=== PATIENT | male | born 1965 | race African-American/Black ===

== ENCOUNTER → 2018-03-30 | Outpatient (RCR) | payer MEDICARE, OTHER ==
[~2018-03-30] MED LIST: AMLODIPINE BESY10 MG ORAL; ANTI-DIARRHEA2 MG PO; FERROUS SULFAT325 M2 ORAL; FUROSEMIDE40 MG ORAL; FUROSEMIDE40 MG/5 ML ORAL; HUMALOG100 UNIT/4 SUBQ; LANTUS SOL100 UNIT/1 SUBQ; NORCO 5-325 TA1 EAC1 ORAL; NOVOLIN R100 UNIT/1 SUBQ; RENAGEL800 MG ORAL; SODIUM POL15 GM/60 M PO; THERAPEUTIC M PO; UNOBMED; [UNRECOGNIZED DRUG - OTHER]; [UNRECOGNIZED DRUG - OTHER]
--- NOTE | 2018-03-30 17:19 | Diagnostic Imaging Report ---
Reason For Exam: COUGH Technique: XRAY Chest 2v Comparison: 01/03/2016 Findings: There is unchanged elevation of the right hemidiaphragm. There has been interval removal of the dialysis catheter. Metallic foreign bodies again project over the right upper thorax. There is no definite focal airspace consolidation, pleural effusion or pneumothorax. No acute osseous abnormality is seen. Impression: No focal consolidation, pleural effusion or pneumothorax. Chronic findings as above.
--- NOTE | 2018-03-31 10:43 | Diagnostic Imaging Report ---
Indication: pain Right hand pain Findings: 3 views of the right hand were obtained. The bones are severely osteopenic with patchy areas of demineralization. The third PIP joint appears destroyed. The normal joint architecture is absent and there is marked erosion of the joint space. Consequently there is a dislocation present. Findings may be on the basis of an advanced septic arthritis or inflammatory arthritis. Correlate clinically. Soft tissue swelling is noted. Small vessel arterial calcifications are present likely related to advanced renal disease. IMPRESSION: Destruction of the third PIP joint which may be on the basis of septic arthritis or inflammatory arthritis. Correlate clinically.
== END | disposition home or self-care (01) ==
LOC: WCC 15:09
DX: L98.493 Non-pressure chronic ulcer of skin of other sites with necrosis of muscle (principal); M86.641 Other chronic osteomyelitis, right hand; E11.622 Type 2 diabetes mellitus with other skin ulcer; I12.0 Hypertensive chronic kidney disease with stage 5 chronic kidney disease or end stage renal disease; E11.22 Type 2 diabetes mellitus with diabetic chronic kidney disease; N18.6 End stage renal disease; Z89.512 Acquired absence of left leg below knee; Z89.421 Acquired absence of other right toe(s)
CPT/HCPCS: 11043; 71046

== ENCOUNTER 2018-04-13 12:32 | Outpatient (RCR) | payer MEDICARE, OTHER | END 2018-04-30 | disposition home or self-care (01) | LOC: WCC 12:32 | DX: L98.493 Non-pressure chronic ulcer of skin of other sites with necrosis of muscle (principal); M86.641 Other chronic osteomyelitis, right hand; E11.622 Type 2 diabetes mellitus with other skin ulcer; Z89.411 Acquired absence of right great toe; I12.0 Hypertensive chronic kidney disease with stage 5 chronic kidney disease or end stage renal disease; E11.22 Type 2 diabetes mellitus with diabetic chronic kidney disease; N18.6 End stage renal disease; Z89.512 Acquired absence of left leg below knee | CPT/HCPCS: 11043 ==